=== PATIENT | male | born 1985 | race Caucasian/White ===

== ENCOUNTER → 2017-08-18 | Outpatient (CLI) | payer OTHER ==
--- NOTE | 2017-08-18 18:15 | XR ---
EXAMINATION TYPE: XR foot complete RT DATE OF EXAM: 08/18/2017 COMPARISON: NONE HISTORY: Pain TECHNIQUE: 3 views FINDINGS: There is deformity of the proximal fifth metatarsal related to old healed fracture. I see n o acute fracture nor dislocation. There is an Achilles calcaneal spur. There are no erosions. IMPRESSION: Old healed fifth metatarsal fracture. No acute fracture seen.
== END | disposition home or self-care (01) ==
LOC: RADXRMAIN 17:43
PROVIDERS: ATTEND Physician Assistant
DX: M25.571 Pain in right ankle and joints of right foot (principal); Z87.81 Personal history of (healed) traumatic fracture

== ENCOUNTER → 2018-06-09 | Outpatient (CLI) | payer OTHER ==
--- NOTE | 2018-06-09 17:57 | PN ---
PROGRESS NOTE Shiraz is 33, coming in for routine followup regarding his obstructive sleep apnea. His last evaluation was done 3 years ago. Note that the patient during this time quit using his CPAP machine. He felt worse and became much more somnolent and sleepy. Over the past 2-3 months he decided to go back. I checked his CPAP machine, and the compliance has improved. The patient is averaging around 6.2 hours of CPAP use per night. AHI while on treatment is down to 0.6. His leak factor is only 8 L/minute. His treatment is successful and he seems to be committed to long-term treatment, knowing that he has seen a major difference in his sleep quality and his symptoms of daytime hypersomnolence and sleepiness while being on the treatment. Otherwise his weight has been stable and he has no other complaints. He is requesting that his CPAP supplies be renewed. His BP is 168/77, pulse 88, respirations 16, temperature 98.5. BMI is 56 and weight is 388. Height is 5 feet 9 inches. Saturation 94%. GENERAL APPEARANCE: Calm, comfortable. Not in acute distress. Head is atraumatic, normocephalic. Neck is supple. No goiter or neck masses. Mallampati class IV. Poor dental hygiene. LUNGS: Clear to auscultation. Heart sounds are regular rate and rhythm. Normal S1, S2. No S3, S4. No murmurs. Abdomen is soft, nontender. No organomegaly. EXTREMITIES: No edema. No cyanosis or clubbing. NEUROLOGIC: Alert and oriented x3. No focal neurological deficit. IMPRESSION: 1. Obstructive sleep apnea with apnea/hypopnea index of 17, currently on CPAP pressure of 8. 2. Hypersomnia, improved while on CPAP therapy. 3. Morbid obesity. PLAN: 1. Restart CPAP therapy at the same level of pressure. 2. Renew this patient's CPAP supplies. 3. See me back in a year's time, earlier if needed. MMODL / IJN: [id number] /
== END | disposition home or self-care (01) ==
LOC: SLEEP 14:48
PROVIDERS: ATTEND Internal Medicine Critical Care Medicine
DX: G47.33 Obstructive sleep apnea (adult) (pediatric) (principal); E66.01 Morbid (severe) obesity due to excess calories; Z99.89 Dependence on other enabling machines and devices; Z68.43 Body mass index [BMI] 50.0-59.9, adult

== ENCOUNTER 2018-09-09 19:38 | Emergency (ER) | payer OTHER ==
[2018-09-09 19:55] VITALS: BP 163/101; PULSE 113; RESP 18; TEMP 99
[2018-09-09] MEDS ORDERED: DIPH,PERTUS(ACELL)TETVAC-LF 0.5 ML VIAL IM ONE (20:33)
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
== END 2018-09-09 22:33 | disposition home or self-care (01) ==
LOC: EC 19:38
DX: F41.9 Anxiety disorder, unspecified (principal); T23.072A Burn of unspecified degree of left wrist, initial encounter; F31.9 Bipolar disorder, unspecified; Z23 Encounter for immunization; Z91.048 Other nonmedicinal substance allergy status; Z91.011 Allergy to milk products; X19.XXXA Contact with other heat and hot substances, initial encounter
CPT/HCPCS: 90471; 90715; 99285

== ENCOUNTER 2022-10-01 13:38 | Emergency (ER) | payer OTHER ==
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
[2022-10-01 23:10] LABS: Basophils # (A) 0.1 k/uL (0-0.2); Basophils % (A) 1 %; Eosinophils # (A) 0.2 k/uL (0-0.7); Eosinophils % (A) 2 %; HCT 44.8 % (39.0-53.0); HGB 14.7 gm/dL (13.0-17.5); Lymphocytes # (A) 2.7 k/uL (1.0-4.8); Lymphocytes % (A) 28 %; MCH 28.7 pg (25.0-35.0); MCHC 32.8 g/dL (31.0-37.0); MCV 87.5 fL (80.0-100.0); Mean Platelet Volume 8.8; Monocytes # (A) 0.7 k/uL (0-1.0); Monocytes % (A) 7 %; Neutrophils # (A) 5.8 k/uL (1.3-7.7); Neutrophils % (A) 60 %; Platelet Count 241 k/uL (150-450); RBC 5.11 m/uL (4.30-5.90); WBC 9.6 k/uL (3.8-10.6)
[2022-10-01 23:19] LABS: African American GFR (CKD) >90 (>60 ml/min/1.73 sqM); Anion Gap 9 mmol/L; Blood Urea Nitrogen 9 mg/dL (9-20); Calcium 9.1 mg/dL (8.4-10.2); Carbon Dioxide 26 mmol/L (22-30); Chloride 104 mmol/L (98-107); Glucose 104 mg/dL (74-99); Non-African American GFR(CKD) >90 (>60 ml/min/1.73 sqM); Potassium 3.5 mmol/L (3.5-5.1); Sodium 139 mmol/L (137-145)
[2022-10-01 23:59] VITALS: BP 150/90; RESP 18
[2022-10-02 01:57] LABS: Appearance,Urine Cloudy (Clear); Bilirubin,Urine Negative (Negative); Blood,Urine Negative (Negative); Color,Urine Yellow; Glucose,Urine (UA) Negative (Negative); Ketones,Urine Negative (Negative); Leukocyte Esterase,Urine Small (Negative); Mucus,Urine Many /hpf; Nitrite,Urine Negative (Negative); PH, Urine 5.5 (5.0-8.0); Protein,Urine 2+ (Negative); RBC,Urine 1 /hpf (0-5); Specific Gravity,Urine 1.035 (1.001-1.035); Squamous Epithelial Cell,Urine 2 /hpf (0-4); WBC,Urine 6 /hpf (0-5)
[2022-10-02 02:00] LABS: Amphetamine Screen,Urine Not Detected (NotDetected); Barbiturate Screen,Urine Not Detected (NotDetected); Benzodiazepines Screen,Urine Not Detected (NotDetected); Cocaine Screen,Urine Not Detected (NotDetected); Methadone Screen, Urine Not Detected (NotDetected); Opiate Screen,Urine Not Detected (NotDetected); Oxycodone Screen, Urine Not Detected (NotDetected); Phencyclidine Screen,Urine Not Detected (NotDetected); Tricyclic Antidepressant,Urine Not Detected (NotDetected); Urn Cannabinoid Scrn Detected (NotDetected)
[2022-10-02 09:25] VITALS: PULSE 75; TEMP 97.6
== END 2022-10-02 10:20 ==
LOC: EC 13:38
DX: F29 Unspecified psychosis not due to a substance or known physiological condition (principal); F41.9 Anxiety disorder, unspecified; F31.9 Bipolar disorder, unspecified; F12.90 Cannabis use, unspecified, uncomplicated; Z91.011 Allergy to milk products; Z88.8 Allergy status to other drugs, medicaments and biological substances; Z20.822 Contact with and (suspected) exposure to COVID-19
CPT/HCPCS: 36415; 80048; 80306; 81001; 82075; 85025; 87635; 99285